=== PATIENT | male | born 1955 | race American Indian/Alaskan Native ===

== ENCOUNTER 2019-04-05 05:30 | Emergency (ER) | payer SELFPAY ==
--- NOTE | 2019-04-05 06:33 | Emergency Department Report ---
Blank Doc - Documentation Documentation: 64 y/o fall with neck pain. a few weeks ago. Plan xray
--- NOTE | 2019-04-05 07:01 | XRay Report ---
CERVICAL SPINE 3 VIEWS INDICATION: Neck pain for 2 days. COMPARISON: No relevant prior imaging study available. FINDINGS: VERTEBRAE: No acute fracture. Normal alignment. DISC SPACES: No significant abnormality. FACET JOINTS: No significant abnormality. SOFT TISSUES: No significant abnormality. ADDITIONAL FINDINGS: No additional significant findings. IMPRESSION: No acute findings. Signer Name: Mario Mckee MD Signed: 04/05/2019 6:57 AM Workstation Name: [id number]
--- NOTE | 2019-04-05 07:29 | Emergency Department Report ---
ED Neck Pain/Injury HPI - General Chief Complaint: Neck Pain/Injury Stated Complaint: left sided neck pain Time Seen by Provider: 04/05/19 07:15 Mode of arrival: Ambulatory Limitations: No Limitations - History of Present Illness Initial Comments: Pt is a 64 yo male who presents to the ED with c/o left sided neck pain that goes into the left side of his head and left shoulder that began three weeks ago. he states his pain is worse with movement. he states that he had a fall three weeks ago because of his dog and fell onto his left side. he denies any LOC. he does not report any numbness or weakness in his BLE or BUE. he denies any bowel or bladder incontinence. he denies any PMHx or allergies to medications. he is a former smoker and quit 9 years ago. he does not have a primary care doctor. - Related Data Previous Rx's Medication Instructions Recorded Last Taken Type Acetaminophen [Acetaminophen 8 650 mg PO Q8HR PRN #20 tablet.er 04/05/19 Unknown Rx Hour] Baclofen [Lioresal] 10 mg PO QHS PRN #10 tab 04/05/19 Unknown Rx Allergies Allergy/AdvReac Type Severity Reaction Status Date / Time No Known Allergies Allergy Unverified 04/05/19 05:49 ED Review of Systems ROS: Stated complaint: LEFT FACE AND ARM NUMBNESS Other details as noted in HPI Comment: All other systems reviewed and negative ED Past Medical Hx - Past Medical History Previous Medical History?: No - Surgical History Past Surgical History?: No - Social History Smoking Status: Never Smoker Substance Use Type: Alcohol - Medications Home Medications: Home Medications Medication Instructions Recorded Confirmed Last Taken Type Acetaminophen [Acetaminophen 8 650 mg PO Q8HR PRN #20 tablet.er 04/05/19 Unknown Rx Hour] Baclofen [Lioresal] 10 mg PO QHS PRN #10 tab 04/05/19 Unknown Rx ED Physical Exam - General Limitations: No Limitations General appearance: alert, in no apparent distress - Head Head exam: Present: atraumatic, normocephalic - Eye Eye exam: Present: normal appearance, PERRL, EOMI - ENT ENT exam: Present: mucous membranes moist - Neck Neck exam: Present: normal inspection, tenderness (left sided paraspinal muscular TTP, no midline C-spine tenderness to palpation, left sided trapezius TTP), full ROM - Respiratory Respiratory exam: Present: normal lung sounds bilaterally. Absent: respiratory distress, wheezes, rales, rhonchi, chest wall tenderness, accessory muscle use, decreased breath sounds, prolonged expiratory - Cardiovascular Cardiovascular Exam: Present: regular rate, normal rhythm, normal heart sounds. Absent: systolic murmur, diastolic murmur, rubs, gallop - Back Exam Back exam: Present: normal inspection, full ROM. 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 Absent: motor sensory deficit - Psychiatric Psychiatric exam: Present: normal affect, normal mood - Skin Skin exam: Present: warm, dry, intact ED Course Vital Signs 04/05/19 04/05/19 05:40 07:44 Temperature 97.4 F L Pulse Rate 62 64 Respiratory 20 18 Rate Blood Pressure 168/81 Blood Pressure 161/78 [Left] O2 Sat by Pulse 98 98 Oximetry ED Medical Decision Making - Radiology Data Radiology results: report reviewed XR cervical spine: no acute process - Medical Decision Making Pt is a 64 yo male who presents to the ED with c/o left sided neck pain that goes into the left side of his head and left shoulder that began three weeks ago. he states his pain is worse with movement. he states that he had a fall three weeks ago because of his dog and fell onto his left side. he denies any LOC. he does not report any numbness or weakness in his BLE or BUE. he denies any bowel or bladder incontinence. he denies any PMHx or allergies to medications. he is a former smoker and quit 9 years ago. he does not have a primary care doctor. on exam: left sided paraspinal muscular TTP, no midline C- spine tenderness to palpation, left sided trapezius TTP, no focal neuro deficit. XR of the cervical spine with no acute process. pt given prescription for baclofen and given tylenol. advised to please use medication as prescribed. do not drive or operate heavy machinery while taking muscle relaxer. may use ice, rest, heat, epsom salt bath. follow up with a primary care doctor in the next 2- 3 days. return to the emergency room for any new or worsening symptoms. also discussed with pt the elevation in his blood pressure during todays visit. advised to follow up with a PCP. discussed to keep a BP log and eat a low sodium diet. - Differential Diagnosis strain, sprain, fx, dislocation, DDD,, spondylolisthesis Critical care attestation.: If time is entered above; I have spent that time in minutes in the direct care of this critically ill patient, excluding procedure time. ED Disposition Clinical Impression: Neck pain Disposition: DC-01 TO HOME OR SELFCARE Is pt being admited?: No Does the pt Need Aspirin: No Condition: Stable Instructions: Muscle Strain (ED) Additional Instructions: please use medication as prescribed. do not drive or operate heavy machinery while taking muscle relaxer. may use ice, rest, heat, epsom salt bath. follow up with a primary care doctor in the next 2-3 days. return to the emergency room for any new or worsening symptoms. Prescriptions: Baclofen [Lioresal] 10 mg PO QHS PRN #10 tab PRN Reason: Muscle Spasm Acetaminophen [Acetaminophen 8 Hour] 650 mg PO Q8HR PRN #20 tablet.er PRN Reason: pain [facility] [Primary Care Provider] - 2-3 Days JOSHUA ALLEN MD [Staff Physician] - 2-3 Days Time of Disposition: 07:32 Print Language: HONG KONGER
[2019-04-05 07:45] VITALS: BP 161/78
== END 2019-04-05 07:44 | disposition home or self-care (01) ==
LOC: ED 05:30
DX: M54.2 Cervicalgia (principal); Z79.899 Other long term (current) drug therapy
CPT/HCPCS: 72040

== ENCOUNTER 2019-06-14 04:35 | Emergency (ER) | payer SELFPAY ==
[2019-06-14 04:43] VITALS: BP 144/75
[2019-06-14 05:42] LABS: Bilirubin,Urine NEG (Negative); Blood,Urine NEG (Negative); Color,Urine Yellow (Yellow); Mucus,Urine FEW /HPF; Protein,Urine <15 mg/dL mg/dL (Negative); Urobilinogen,Urine < 2.0 mg/dL (<2.0)
[2019-06-14] MEDS ORDERED: ONDANSETRON 4 MG ODT TAB PO ONE (05:45)
[2019-06-14] MEDS ORDERED: SULFAMETHOXAZOLE/TRIMETHOPRIM 800/160MG DS TAB PO ONE (05:45)
--- NOTE | 2019-06-14 06:07 | Emergency Department Report ---
ED General Adult HPI - General Chief complaint: Urogenital-Male Stated complaint: BLOOD IN URINE Source: patient Mode of arrival: Ambulatory Limitations: No Limitations - History of Present Illness Initial comments: Patient is a 64-year-old -[place] male with no past medical history who presents to the ED with complaint of acute onset persistent intermittent hematuria and dysuria 3 days ago but which has since resolved. Patient denies fever, chills, testicular pain, penile discharge, nausea, vomiting, hematuria, abdominal pain, diarrhea, headache, chest pain, traumatic injury, low back pain or change in vision, and fall. MD Complaint: Hematuria, dysuria -: Sudden, days(s) (4) Location: genitals Radiation: non-radiation Severity scale (0 -10): 0 Quality: dull Consistency: intermittent Improves with: none Worsens with: none Associated Symptoms: denies: denies other symptoms, confusion, chest pain, fever/chills, headaches, malaise, nausea/vomiting, rash, shortness of breath, syncope, other Treatments Prior to Arrival: none - Related Data Previous Rx's Medication Instructions Recorded Last Taken Type Acetaminophen [Acetaminophen 8 650 mg PO Q8HR PRN #20 tablet.er 04/05/19 Unknown Rx Hour] Baclofen [Lioresal] 10 mg PO QHS PRN #10 tab 04/05/19 Unknown Rx Sulfamethoxazole/Trimethoprim 1 each PO Q12H #20 tablet 06/14/19 Unknown Rx [Bactrim DS TAB] Allergies Allergy/AdvReac Type Severity Reaction Status Date / Time No Known Allergies Allergy Unverified 04/05/19 05:49 ED Review of Systems ROS: Stated complaint: BLOOD IN URINE Other details as noted in HPI Constitutional: denies: chills, fever Eyes: denies: eye pain, eye discharge, vision change ENT: denies: ear pain, throat pain Respiratory: denies: cough, shortness of breath, wheezing Cardiovascular: denies: chest pain, palpitations Endocrine: no symptoms reported Gastrointestinal: denies: abdominal pain, nausea, diarrhea Genitourinary: urgency, dysuria, hematuria. denies: frequency, discharge Musculoskeletal: denies: back pain, joint swelling, arthralgia Skin: denies: rash, lesions Neurological: denies: headache, weakness, paresthesias Psychiatric: denies: anxiety, depression Hematological/Lymphatic: denies: easy bleeding, easy bruising ED Past Medical Hx - Past Medical History Previous Medical History?: No - Surgical History Past Surgical History?: No - Social History Smoking Status: Never Smoker Substance Use Type: None - Medications Home Medications: Home Medications Medication Instructions Recorded Confirmed Last Taken Type Acetaminophen [Acetaminophen 8 650 mg PO Q8HR PRN #20 tablet.er 04/05/19 Unknown Rx Hour] Baclofen [Lioresal] 10 mg PO QHS PRN #10 tab 04/05/19 Unknown Rx Sulfamethoxazole/Trimethoprim 1 each PO Q12H #20 tablet 06/14/19 Unknown Rx [Bactrim DS TAB] ED Physical Exam - General Limitations: No Limitations General appearance: alert, in no apparent distress - Head Head exam: Present: atraumatic, normocephalic, normal inspection - Eye Eye exam: Present: normal appearance, PERRL, EOMI. Absent: scleral icterus, conjunctival injection, nystagmus, periorbital swelling, periorbital tenderness, other Pupils: Present: normal accommodation - ENT ENT exam: Present: normal exam, normal orophraynx, mucous membranes moist, TM's normal bilaterally, normal external ear exam - Neck Neck exam: Present: normal inspection, full ROM - Respiratory Respiratory exam: Present: normal lung sounds bilaterally. Absent: respiratory distress, wheezes, rales, rhonchi, accessory muscle use, decreased breath sounds, prolonged expiratory - Cardiovascular Cardiovascular Exam: Present: regular rate, normal rhythm, normal heart sounds. Absent: systolic murmur, diastolic murmur, rubs, gallop - GI/Abdominal GI/Abdominal exam: Present: soft, normal bowel sounds. Absent: tenderness, guarding, rebound, hyperactive bowel sounds, hypoactive bowel sounds, organomegaly - Rectal Rectal exam: Present: deferred - Extremities Exam Extremities exam: Present: normal inspection, full ROM, normal capillary refill - Back Exam Back exam: Present: normal inspection, full ROM. Absent: CVA tenderness (L), muscle spasm - Neurological Exam Neurological exam: Present: alert, oriented X3, CN II-XII intact, normal gait, reflexes normal - Psychiatric Psychiatric exam: Present: normal affect, normal mood - Skin Skin exam: Present: warm, dry, intact, normal color. Absent: rash ED Course Vital Signs 06/14/19 04:38 Temperature 97.6 F Pulse Rate 63 Respiratory 20 Rate Blood Pressure 144/75 O2 Sat by Pulse 98 Oximetry - Reevaluation(s) Reevaluation #1: 06/14/19 06:08 This is a 64-year-old male with no past medical history presents to the ED with complaint of acute onset dysuria and hematuria 3 days ago and which has since resolved. In the ED, patient is alert and oriented 3 and is not in distress. Urinalysis shows significant urinary tract infection. Patient was treated in the initially and empirically with antibiotics in the ED and was discharged home on antibiotics and advised to follow-up with his primary care physician in 5-7 days for reevaluation or return to the ED immediately if symptoms get worse. ED Medical Decision Making - Medical Decision Making This is a 64-year-old male with no past medical history presents to the ED with complaint of acute onset dysuria and hematuria 3 days ago and which has since resolved. In the ED, patient is alert and oriented 3 and is not in distress. Urinalysis shows significant urinary tract infection. Patient was treated in the initially and empirically with antibiotics in the ED and was discharged home on antibiotics and advised to follow-up with his primary care physician in 5-7 days for reevaluation or return to the ED immediately if symptoms get worse. - Differential Diagnosis UTI; Kidney stones; STD; Prostatitis Critical care attestation.: If time is entered above; I have spent that time in minutes in the direct care of this critically ill patient, excluding procedure time. ED Disposition Clinical Impression: Acute urinary tract infection Disposition: DC-01 TO HOME OR SELFCARE Is pt being admited?: No Does the pt Need Aspirin: No Condition: Stable Instructions: Urinary Tract Infection in Men (ED) Additional Instructions: Take medication with food, drink plenty of fluids and follow-up with your primary care physician in 5-7 days for reevaluation. Return to the ED immedia tely if symptoms get worse. Prescriptions: Sulfamethoxazole/Trimethoprim [Bactrim DS TAB] 1 each PO Q12H #20 tablet Referrals: PRIMARY CARE, [Primary Care Provider] - 3-5 Days Time of Disposition: 06:02 Print Language: MALTESE
== END 2019-06-14 06:18 | disposition home or self-care (01) ==
LOC: ED 04:35
DX: R39.0 Extravasation of urine (principal)
CPT/HCPCS: 81001; 87086; Q0162

== ENCOUNTER 2020-12-11 02:00 | Emergency (ER) | payer OTHER ==
[2020-12-11 02:07] VITALS: BP 140/68
[2020-12-11] MEDS ORDERED: ACETAMINOPHEN 500 MG TAB PO ONE (03:47)
[2020-12-11] MEDS ORDERED: TETANUS,DIPH,PERTUSS(ACELL) VACCINE 0.5 ML SYRINGE IM ONE (04:49)
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
[2020-12-11] MEDS ORDERED: KETOROLAC 30 MG/1 ML INJ IM ONE (06:22)
[2020-12-11] MEDS ORDERED: KETOROLAC 30 MG/1 ML INJ ONE (06:22)
== END 2020-12-11 06:29 | disposition home or self-care (01) ==
LOC: ED 02:00
DX: S16.1XXA Strain of muscle, fascia and tendon at neck level, initial encounter (principal); S80.01XA Contusion of right knee, initial encounter; Z87.891 Personal history of nicotine dependence; Z79.899 Other long term (current) drug therapy; V49.49XA Driver injured in collision with other motor vehicles in traffic accident, initial encounter; Y93.89 Activity, other specified; Y92.488 Other paved roadways as the place of occurrence of the external cause; Y99.8 Other external cause status
CPT/HCPCS: 70450; 72125; 73560; 90471; 90715; 96372; 99284; J1885